=== PATIENT | female | born 1970 | race African-American/Black ===

== ENCOUNTER 2017-06-19 13:55 | Inpatient (IN) | payer OTHER ==
[2017-06-19 14:35] VITALS: BMI 27.4
--- NOTE | 2017-06-19 16:48 | HP ---
CIWA Score - CIWA Score Nausea/Vomitin Muscle Tremors: 3 Anxiety: 3 Agitation: 3 Paroxysmal Sweats: 1-Minimal Palms Moist Orientation: 0-Oriented Tacttile Disturbances: 2-Mild Itch/Numbness/Burn Auditory Disturbances: 2-Mild Harshness/Frighten Visual Disturbances: 2-Mild Sensitivity Headache: 2-Mild CIWA-Ar Total Score: 21 Admission ROS BHS - HPI Chief Complaint: i need help to stop drinking alcohol Allergies/Adverse Reactions: Allergies Allergy/AdvReac Type Severity Reaction Status Date / Time No Known Allergies Allergy Verified 06/19/17 16:31 History of Present Illness: this 46 years old female with alcohol and cocaine dependence,seekig help,detox, last treatment [facility] 04/03 depression weight loss nicotine dependence longest period of sobriety for 3 months - Ebola screening Have you traveled outside of the country in the last 21 days: No Have you had contact with anyone from an Ebola affected area: No Have you been sick,other than usual withdrawal symptoms: No Do you have a fever: No - Review of Systems Constitutional: Loss of Appetite, Malaise, Night Sweats, Changes in sleep, Weakness, Unintentional Wgt. Loss EENT: reports: Nose Congestion Respiratory: reports: No Symptoms reported Cardiac: reports: Palpitations GI: reports: Diarrhea, Nausea, Abdominal cramping : reports: No Symptoms Reported Musculoskeletal: reports: Back Pain, Muscle Pain Integumentary: reports: Dryness Neuro: reports: Headache, Tremors Endocrine: reports: No Symptoms Reported Hematology: reports: No Symptoms Reported Psychiatric: reports: No Sypmtoms Reported, Judgement Intact, Mood/Affect Appropiate, Orientated x3, Depressed Patient History - Patient Medical History Hx Anemia: No Hx Asthma: No Hx Chronic Obstructive Pulmonary Disease (COPD): No Hx Cancer: No Hx Cardiac Disorders: No Hx Hypertension: No Hx Hypercholesterolemia: No Hx Pacemaker: No HX Cerebrovascular Accident: No Hx Seizures: No Hx Diabetes: No Hx Gastrointestinal Disorders: No Hx Liver Disease: No Hx Genitourinary Disorders: No Hx Sexually Transmitted Disorders: No Hx Renal Disease (ESRD): No Hx Thyroid Disease: No Hx Human Immunodeficiency Virus (HIV): No (last 2014) Hx Hepatitis C: No Hx Depression: Yes Hx Suicide Attempt: No Hx Bipolar Disorder: No Hx Schizophrenia: No Other Medical History: no suicidal,no homicidal - Patient Surgical History Past Surgical History: No - PPD History Previous Implant?: Yes Documented Results: Negative w/o proof Implanted On Prior R Admission?: No PPD to be Administered?: Yes - Reproductive History Last Menstrual Period: 06/15/17 Patient : No - Smoking Cessation Smoking history: Current every day smoker Have you smoked in the past 12 months: Yes Aproximately how many cigarettes per day: 20 Hx Chewing Tobacco Use: No Initiated information on smoking cessation: Yes 'Breaking Loose' booklet given: 06/19/17 - Substance & Tx. History Hx Alcohol Use: Yes Hx Substance Use: Yes Substance Use Type: Alcohol, Cocaine Hx Substance Use Treatment: Yes (last [facility] 04/03) - Substances Abused Alcohol Route: Oral Frequency: Daily Amount used: 1 PINT VODKA Age of first use: 14 Date of Last Use: 06/18/17 Crack Route: Smoking Frequency: Daily Amount used: $200 Age of first use: 32 Date of Last Use: 06/18/17 Family Disease History - Family Disease History Family Disease History: CA: Mother (lung), Other: Sister (alcohol) Admission Physical Exam BHS - Vital Signs Vital Signs: Vital Signs - 24 hr 06/19/17 14:32 Temperature 97.1 F L Pulse Rate 95 H Respiratory 20 Rate Blood Pressure 120/62 - Physical General Appearance: Yes: Moderate Distress, Tremorous, Irritable, Sweating, Anxious HEENTM: Yes: Normal ENT Inspection, LANIE, Pharynx Normal Respiratory: Yes: Lungs Clear, Normal Breath Sounds, No Respiratory Distress Neck: Yes: Within Normal Limits, Supple, Trachea in good position Breast: Yes: Breast Exam Deferred Cardiology: Yes: Within Normal Limits, Regular Rhythm, Regular Rate, S1, S2 Abdominal: Yes: Normal Bowel Sounds, Non Tender, Flat, Soft Genitourinary: Yes: Within Normal Limits Back: Yes: Muscle Spasm Musculoskeletal: Yes: full range of Motion, Back pain, Muscle Pain Extremities: Yes: Normal Range of Motion, Tremors Neurological: Yes: pool player II-XII NML intact, Fully Oriented, Alert, Motor Strength 5/5 Integumentary: Yes: Dry Lymphatic: Yes: Within Normal Limits - Diagnostic (1) Alcohol dependence with uncomplicated withdrawal Current Visit: Yes Status: Acute (2) Cocaine dependence Current Visit: Yes Status: Acute (3) Depression Current Visit: Yes Status: Acute (4) Nicotine dependence Current Visit: Yes Status: Acute (5) Weight loss Current Visit: Yes Status: Acute Cleared for Admission S - Detox or Rehab [facility] Level of Care: Medically Managed Detox Regimen/Protocol: Librium [facility] Breath Alcohol Content Breath Alcohol Content: 0.072 Urine Pregancy Test - Result Urine Test Results: Negative- NO Line Present Urine Drug Screen - Results Drug Screen Negative: No Urine Drug Screen Results: ROBERT-Cocaine
[2017-06-19] MEDS ORDERED: hydrOXYzine PAMOATE 50 MG CAPSULE (FP) PO PRN (16:55)
[2017-06-19] MEDS ORDERED: chlordiazePOXIDE HCL 25 MG CAPSULE PO PRN (16:55)
[2017-06-19] MEDS ORDERED: MENTHOL/PHENOL 1 EACH UD MM PRN (16:55)
[2017-06-19] MEDS ORDERED: IBUPROFEN 400 MG TABLET (FP) PO PRN (16:55)
[2017-06-19] MEDS ORDERED: chlordiazePOXIDE HCL 25 MG CAPSULE PO ONE (16:55)
[2017-06-19] MEDS ORDERED: MAGNESIUM CITRATE 300 ML BOTTLE PO PRN (16:55)
[2017-06-19] MEDS ORDERED: guaiFENesin/D-METHORPHAN HB 10 ML UNIT-DOSE CUPS PO PRN (16:55)
[2017-06-19] MEDS ORDERED: P-EPHED 60MG/TRIPROLIDI 2.5MG TABLET PO PRN (16:55)
[2017-06-19] MEDS ORDERED: MAG HYDROX/AL HYDROX/SIMETH 30 ML UNIT-DOSE CUP PO PRN (16:55)
[2017-06-19] MEDS ORDERED: ACETAMINOPHEN 325 MG TABLET (FP) PO PRN (16:55)
[2017-06-19] MEDS ORDERED: MAGNESIUM HYDROX 2400MG/30ML ORAL SUSPENSION 30 ML CUP PO PRN (16:55)
[2017-06-19] MEDS: NICOTINE 21 MG/24 HOURS TOPICAL PATCH TD SCH (17:49)
[2017-06-19 22:07] LABS: URINE APPEARANCE CLOUDY; URINE BILIRUBIN NEGATIVE (NEGATIVE); URINE BLOOD 1+ (NEGATIVE); URINE COLOR YELLOW; URINE GLUCOSE (UA) NEGATIVE (NEGATIVE); URINE KETONE TRACE (NEGATIVE); URINE LEUK ESTERASE TRACE (NEGATIVE); URINE NITRITE NEGATIVE (NEGATIVE); URINE PROTEIN NEGATIVE (NEGATIVE); URINE UROBILINOGEN NEGATIVE mg/dL (0.2-1.0)
[2017-06-19] MEDS: diphenhydrAMINE HCL 50 MG CAPSULE PO PRN (22:13)
[2017-06-19] MEDS: chlordiazePOXIDE HCL 25 MG CAPSULE PO SCH (22:13)
[2017-06-19] MEDS: THIAMINE HCL 100 MG TABLET (FP) PO SCH (22:13)
[2017-06-19 22:35] LABS: URINE MUCUS RARE; URINE RBC 1 /hpf (0-3); URINE WBC 3 /hpf (3-5)
[2017-06-20] MEDS: chlordiazePOXIDE HCL 25 MG CAPSULE PO SCH ×4 (05:19→22:19)
[2017-06-20 10:03] LABS: MCH 30.1 pg (25.7-33.7); MCHC 33.4 g/dl (32.0-36.0); MEAN CELL VOLUME 90.2 fl (80-96); MEAN PLT VOLUME 9.4 fl (7.5-11.1); PLATELET COUNT 235 K/MM3 (134-434); RDW 13.3 % (11.6-15.6); WHITE BLOOD COUNT 7.6 K/mm3 (4.0-10.0)
[2017-06-20] MEDS: PRENATAL VITAMINS W/ FOLIC ACID TABLET (FP) PO SCH (10:20)
[2017-06-20] MEDS: NICOTINE 21 MG/24 HOURS TOPICAL PATCH TD SCH (10:21)
[2017-06-20] MEDS: SERTRALINE HCL 50 MG TABLET (FP) PO SCH (10:22)
[2017-06-20 10:24] LABS: ALBUMIN 3.4 g/dl (3.4-5.0); ALK PHOS 56 U/L (45-117); ANION GAP 6 (8-16); BILIRUBIN,TOTAL 0.3 mg/dL (0.2-1.0); CO2 28 mmol/L (21-32); CREATININE 0.8 mg/dL (0.55-1.02); GLUCOSE,RANDOM 78 mg/dL (74-106); SGOT/AST 19 U/L (15-37); SGPT/ALT 25 U/L (12-78); TOT PROT 6.1 g/dl (6.4-8.2)
--- NOTE | 2017-06-20 10:42 | CONSULT ---
[facility] Psychiatric Consult - Data Date of interview: 06/20/17 Admission source: [facility] Identifying data: This is 46 years old female with no psychiatric hospitalization history intoxicated with: Alcohol, Cocaine and Nicotine Substance Abuse History: - Smoking Cessation. Smoking history: Current every day smoker. Have you smoked in the past 12 months: Yes. Aproximately how many cigarettes per day: 20. Hx Chewing Tobacco Use: No. Initiated information on smoking cessation: Yes. 'Breaking Loose' booklet given: 06/19/17. - Substance & Tx. History. Hx Alcohol Use: Yes. Hx Substance Use: Yes. Substance Use Type : Alcohol, Cocaine. Hx Substance Use Treatment: Yes (last [facility] 04/03). - Substances Abused. Alcohol. Route: Oral. Frequency: Daily. Amount used: 1 PINT VODKA. Age of first use: 14. Date of Last Use: 06/18/17. Crack. Route: Smoking. Frequency: Daily. Amount used: $200. Age of first use : 32. Date of Last Use: 06/18/17 Medical History: Weight loss Psychiatric History: Patient reports history og depression and anxiety, reports taking prior to admission: Zoloft 50mg poqd Physical/Sexual Abuse/Trauma History: Denies Additional Comment: Zoloft 50mg poqd Mental Status Exam - Mental Status Exam Alert and Oriented to: Person Cognitive Function: Fair Patient Appearance: Unkempt Mood: Sad Affect: Flat Patient Behavior: Sedated Speech Pattern: Delayed Voice Loudness: Mildly Soft/Quiet Thought Process: Circumstantial Thought Disorder: Being Controlled Hallucinations: Denies Suicidal Ideation: Denies Homicidal Ideation: Denies Insight/Judgement: Fair Sleep: Difficulty falling asleep Appetite: Weight gain Muscle strength/Tone: Mild Hypotonicity Gait/Station: Shuffling Additional Comments: Zoloft 50mg poqd Psychiatric Findings - Problem List ([place] 1, 2,3) (1) Alcohol dependence with uncomplicated withdrawal Current Visit: Yes Status: Acute (2) Cocaine dependence Current Visit: Yes Status: Acute (3) Nicotine dependence Current Visit: Yes Status: Acute (4) Drug-induced mood disorder Current Visit: Yes Status: Acute - Initial Treatment Plan Initial Treatment Plan: Zoloft 50mg poqd
[2017-06-20 11:28] LABS: HIV 1 & 2 AB NEGATIVE; HIV 1 AGp24 NEGATIVE
--- NOTE | 2017-06-20 11:29 | EKG ---
Test Reason : Blood Pressure : / mmHG Vent. Rate : 084 BPM Atrial Rate : 084 BPM P-R Int : 164 ms QRS Dur : 088 ms QT Int : 408 ms P-R-T Axes : 053 040 055 degrees QTc Int : 482 ms NORMAL SINUS RHYTHM PROLONGED QT ABNORMAL ECG NO PREVIOUS ECGS AVAILABLE Confirmed by ANDREINA JACKSON, ARON ([id number]) on 06/20/2017 11:28:21 AM Referred By: Bran Tanner Confirmed By:ARON HDZ MD
--- NOTE | 2017-06-20 11:42 | PN ---
S CIWA - CIWA Score Nausea/Vomitin-No Nausea/No Vomiting Muscle Tremors: 4-Moderate,w/Arms Extend Anxiety: 3 Agitation: 4-Moderately Restless Paroxysmal Sweats: 3 Orientation: 0-Oriented Tacttile Disturbances: 0-None Auditory Disturbances: 0-None Visual Disturbances: 0-None Headache: 0-None Present CIWA-Ar Total Score: 14 BHS Progress Note (SOAP) Subjective: sweats shakes interrupted sleep agitation Objective: 06/20/17 11:41 Vital Signs Temperature 98.1 F 06/20/17 09:35 Pulse Rate 75 06/20/17 09:35 Respiratory Rate 18 06/20/17 09:35 Blood Pressure 111/81 06/20/17 09:35 O2 Sat by Pulse Oximetry (%) Laboratory Tests 06/19/17 06/20/17 06/20/17 21:30 07:30 07:30 WBC 7.6 RBC 4.27 Hgb 12.9 Hct 38.5 MCV 90.2 MCH 30.1 MCHC 33.4 RDW 13.3 Plt Count 235 MPV 9.4 Sodium Potassium Chloride Carbon Dioxide Anion Gap BUN Creatinine Creat Clearance w eGFR Random Glucose Calcium Total Bilirubin AST ALT Alkaline Phosphatase Total Protein Albumin Urine Color Yellow Urine Appearance Cloudy Urine pH 5.0 Urine Protein Negative Urine Glucose (UA) Negative Urine Ketones Trace H Urine Blood 1+ H Urine Nitrite Negative Urine Bilirubin Negative Urine Urobilinogen Negative Ur Leukocyte Esterase Trace Urine RBC 1 Urine WBC 3 Ur Epithelial Cells Many Urine Mucus Rare HIV 1&2 Antibody Screen Negative HIV P24 Antigen Negative 06/20/17 07:30 WBC RBC Hgb Hct MCV MCH MCHC RDW Plt Count MPV Sodium 141 Potassium 4.1 Chloride 107 Carbon Dioxide 28 Anion Gap 6 L BUN 11 Creatinine 0.8 Creat Clearance w eGFR > 60 Random Glucose 78 Calcium 9.0 Total Bilirubin 0.3 AST 19 ALT 25 Alkaline Phosphatase 56 Total Protein 6.1 L Albumin 3.4 Urine Color Urine Appearance Urine pH Urine Protein Urine Glucose (UA) Urine Ketones Urine Blood Urine Nitrite Urine Bilirubin Urine Urobilinogen Ur Leukocyte Esterase Urine RBC Urine WBC Ur Epithelial Cells Urine Mucus HIV 1&2 Antibody Screen HIV P24 Antigen awake/alert ambulating no acute distress Assessment: 06/20/17 11:41 withdrawal sx Plan: continue detox increase fluids
[2017-06-20] MEDS: LOPERAMIDE HCL 2 MG CAPSULE PO PRN ×2 (13:09→20:51)
[2017-06-20] MEDS: THIAMINE HCL 100 MG TABLET (FP) PO SCH (22:19)
[2017-06-20] MEDS: diphenhydrAMINE HCL 50 MG CAPSULE PO PRN (22:19)
[2017-06-21] MEDS: chlordiazePOXIDE HCL 25 MG CAPSULE PO SCH ×3 (05:49→17:37)
[2017-06-21] MEDS: NICOTINE 21 MG/24 HOURS TOPICAL PATCH TD SCH (10:41)
[2017-06-21] MEDS: SERTRALINE HCL 50 MG TABLET (FP) PO SCH (10:42)
[2017-06-21] MEDS: PRENATAL VITAMINS W/ FOLIC ACID TABLET (FP) PO SCH (10:42)
--- NOTE | 2017-06-21 12:17 | PN ---
[facility] CIWA - CIWA Score Nausea/Vomitin-No Nausea/No Vomiting Muscle Tremors: 4-Moderate,w/Arms Extend Anxiety: 3 Agitation: 3 Paroxysmal Sweats: 3 Orientation: 0-Oriented Tacttile Disturbances: 0-None Auditory Disturbances: 0-None Visual Disturbances: 0-None Headache: 0-None Present CIWA-Ar Total Score: 13 S Progress Note (SOAP) Subjective: sleepy sweats interrupted sleep tired Objective: 06/21/17 12:16 Vital Signs Temperature 97.5 F L 06/21/17 10:00 Pulse Rate 76 06/21/17 10:00 Respiratory Rate 18 06/21/17 10:00 Blood Pressure 108/66 06/21/17 10:00 O2 Sat by Pulse Oximetry (%) Laboratory Tests 06/19/17 06/20/17 06/20/17 21:30 07:30 07:30 WBC 7.6 RBC 4.27 Hgb 12.9 Hct 38.5 MCV 90.2 MCH 30.1 MCHC 33.4 RDW 13.3 Plt Count 235 MPV 9.4 Sodium Potassium Chloride Carbon Dioxide Anion Gap BUN Creatinine Creat Clearance w eGFR Random Glucose Calcium Total Bilirubin AST ALT Alkaline Phosphatase Total Protein Albumin Urine Color Yellow Urine Appearance Cloudy Urine pH 5.0 Ur Specific [place] 1.025 Urine Protein Negative Urine Glucose (UA) Negative Urine Ketones Trace H Urine Blood 1+ H Urine Nitrite Negative Urine Bilirubin Negative Urine Urobilinogen Negative Ur Leukocyte Esterase Trace Urine RBC 1 Urine WBC 3 Ur Epithelial Cells Many Urine Mucus Rare RPR Titer HIV 1&2 Antibody Screen Negative HIV P24 Antigen Negative 06/20/17 06/20/17 07:30 07:30 WBC RBC Hgb Hct MCV MCH MCHC RDW Plt Count MPV Sodium 141 Potassium 4.1 Chloride 107 Carbon Dioxide 28 Anion Gap 6 L BUN 11 Creatinine 0.8 Creat Clearance w eGFR > 60 Random Glucose 78 Calcium 9.0 Total Bilirubin 0.3 AST 19 ALT 25 Alkaline Phosphatase 56 Total Protein 6.1 L Albumin 3.4 Urine Color Urine Appearance Urine pH Ur Specific [place] Urine Protein Urine Glucose (UA) Urine Ketones Urine Blood Urine Nitrite Urine Bilirubin Urine Urobilinogen Ur Leukocyte Esterase Urine RBC Urine WBC Ur Epithelial Cells Urine Mucus RPR Titer Nonreactive HIV 1&2 Antibody Screen HIV P24 Antigen awake/alert ambulating no acute distress Assessment: 06/21/17 12:16 withdrawal sx Plan: continue detox increase fluids
[2017-06-21] MEDS: chlordiazePOXIDE 5 MG CAPSULE PO SCH (22:28)
[2017-06-21] MEDS: THIAMINE HCL 100 MG TABLET (FP) PO SCH (22:28)
[2017-06-21] MEDS: diphenhydrAMINE HCL 50 MG CAPSULE PO PRN (22:29)
[2017-06-22] MEDS: chlordiazePOXIDE 5 MG CAPSULE PO SCH ×3 (06:18→17:03)
[2017-06-22] MEDS: SERTRALINE HCL 50 MG TABLET (FP) PO SCH (10:52)
[2017-06-22] MEDS: NICOTINE 21 MG/24 HOURS TOPICAL PATCH TD SCH (10:52)
[2017-06-22] MEDS: PRENATAL VITAMINS W/ FOLIC ACID TABLET (FP) PO SCH (10:52)
--- NOTE | 2017-06-22 14:07 | PN ---
BHS Progress Note (SOAP) Subjective: ALERT,IRRITABLE,ANXIOUS,INTERRUPTED SLEEP Objective: 06/22/17 14:06 Vital Signs Temperature 98.1 F 06/22/17 10:09 Pulse Rate 73 06/22/17 10:09 Respiratory Rate 18 06/22/17 10:09 Blood Pressure 115/88 06/22/17 10:09 O2 Sat by Pulse Oximetry (%) Assessment: 06/22/17 14:06 WITHDRAWAL SYMPTOM Plan: CONTINUE DETOX
[2017-06-22] MEDS: diphenhydrAMINE HCL 50 MG CAPSULE PO PRN (22:25)
[2017-06-22] MEDS: chlordiazePOXIDE HCL 10 MG CAPSULE PO SCH (22:25)
[2017-06-22] MEDS: THIAMINE HCL 100 MG TABLET (FP) PO SCH (22:25)
[2017-06-23] MEDS: chlordiazePOXIDE HCL 10 MG CAPSULE PO SCH ×2 (06:28→10:21)
--- NOTE | 2017-06-23 09:37 | DS ---
[facility] Detox Discharge Summary Admission Date: 06/19/17 Discharge Date: 06/23/17 - History Present History: Alcohol Dependence, Cocaine Dependence Additional Comments: FOLLOW UP WITH [facility] Pertinent Past History: NICOTINE DEPENDENCE DEPRESSION - Physical Exam Results Vital Signs: Vital Signs Temperature 96.1 F L 06/23/17 06:38 Pulse Rate 72 06/23/17 06:38 Respiratory Rate 18 06/23/17 06:38 Blood Pressure 101/60 06/23/17 06:38 O2 Sat by Pulse Oximetry (%) Pertinent Admission Physical Exam Findings: WITHDRAWAL SYMPTOM - Treatment Hospital Course: Detox Protocol Followed, Detoxed Safely, Responded well, Discharged Condition Good, Rehab Referral Accepted Patient has Accepted a Rehab Referral to: [facility] - Medication Discharge Medications: Ambulatory Orders Sertraline HCl [Zoloft -] 50 mg PO DAILY 06/19/17 Sertraline HCl [Zoloft -] 50 mg PO DAILY #30 tablet 06/20/17 - Diagnosis (1) Alcohol dependence with uncomplicated withdrawal Current Visit: Yes Status: Acute (2) Cocaine dependence Current Visit: Yes Status: Acute (3) Depression Current Visit: Yes Status: Acute (4) Nicotine dependence Current Visit: Yes Status: Acute (5) Weight loss Current Visit: Yes Status: Acute - AMA Did Patient Leave Against Medical Advice: No
[2017-06-23] MEDS: SERTRALINE HCL 50 MG TABLET (FP) PO SCH (10:21)
[2017-06-23] MEDS: NICOTINE 21 MG/24 HOURS TOPICAL PATCH TD SCH (10:21)
[2017-06-23] MEDS: PRENATAL VITAMINS W/ FOLIC ACID TABLET (FP) PO SCH (10:21)
[2017-06-23 10:38] VITALS: BP 125/90; PULSE 67; TEMP 97.9
== END 2017-06-23 11:38 | disposition other institution (70) | DRG 774 ==
LOC: YASAS 13:55 → Y6N 17:13
PROVIDERS: ADMIT Internal Medicine Addiction Medicine; ATTEND Internal Medicine Addiction Medicine
PROC: HZ2ZZZZ Detoxification Services for Substance Abuse Treatment (ICD-10-PCS; principal; 2017-06-19)
DX: F10.230 Alcohol dependence with withdrawal, uncomplicated (principal); F14.20 Cocaine dependence, uncomplicated; F17.210 Nicotine dependence, cigarettes, uncomplicated; F32.9 Major depressive disorder, single episode, unspecified; F19.24 Other psychoactive substance dependence with psychoactive substance-induced mood disorder; Z87.898 Personal history of other specified conditions; Z59.0 Homelessness
CPT/HCPCS: 36415; 80053; 81003; 81015; 85027; 86593; 87389; 93005; 93010

== ENCOUNTER 2017-06-23 11:28 | Inpatient (IN) | payer OTHER ==
[2017-06-23] MEDS ORDERED: MAGNESIUM HYDROX 2400MG/30ML ORAL SUSPENSION 30 ML CUP PO PRN (13:15)
[2017-06-23] MEDS ORDERED: guaiFENesin/D-METHORPHAN HB 10 ML UNIT-DOSE CUPS PO PRN (13:15)
[2017-06-23] MEDS ORDERED: MAGNESIUM CITRATE 300 ML BOTTLE PO PRN (13:15)
[2017-06-23] MEDS ORDERED: P-EPHED 60MG/TRIPROLIDI 2.5MG TABLET PO PRN (13:15)
[2017-06-23] MEDS ORDERED: MENTHOL/PHENOL 1 EACH UD MM PRN (13:15)
[2017-06-23] MEDS ORDERED: ACETAMINOPHEN 325 MG TABLET (FP) PO PRN (13:15)
[2017-06-23] MEDS ORDERED: LOPERAMIDE HCL 2 MG CAPSULE PO PRN (13:15)
[2017-06-23] MEDS ORDERED: IBUPROFEN 400 MG TABLET (FP) PO PRN (13:15)
[2017-06-23] MEDS ORDERED: MAG HYDROX/AL HYDROX/SIMETH 30 ML UNIT-DOSE CUP PO PRN (13:15)
[2017-06-23] MEDS ORDERED: hydrOXYzine PAMOATE 50 MG CAPSULE (FP) PO PRN (13:15)
--- NOTE | 2017-06-23 13:15 | HP ---
[facility] Rehab Assess/Revision - Admission History Admitted to Rehab from: [facility] [place] Date of Admission to Rehab: 06/23/17 - Findings Detox History & Physical reviewed: Yes Concur with findings: Yes Comments/Additional Findings: FOR REHAB PROTOCOL
[2017-06-23] MEDS: THIAMINE HCL 100 MG TABLET (FP) PO SCH (21:43)
[2017-06-23] MEDS: diphenhydrAMINE HCL 50 MG CAPSULE PO PRN (21:43)
[2017-06-24] MEDS: NICOTINE 21 MG/24 HOURS TOPICAL PATCH TD SCH (09:38)
[2017-06-24] MEDS: PRENATAL VITAMINS W/ FOLIC ACID TABLET (FP) PO SCH (09:38)
[2017-06-24] MEDS: SERTRALINE HCL 50 MG TABLET (FP) PO SCH (10:07)
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
[2017-06-24] MEDS ORDERED: IBUPROFEN 600 MG TABLET (FP) PO PRN (15:10)
[2017-06-24] MEDS ORDERED: LIDOCAINE VISCOUS 2% ORAL/TOP 20 ML UNIT-DOSE CUP MM PRN (15:10)
[2017-06-24] MEDS: diphenhydrAMINE HCL 50 MG CAPSULE PO PRN (21:11)
[2017-06-24] MEDS: THIAMINE HCL 100 MG TABLET (FP) PO SCH (21:11)
[2017-06-25] MEDS: PRENATAL VITAMINS W/ FOLIC ACID TABLET (FP) PO SCH (09:39)
[2017-06-25] MEDS: NICOTINE 21 MG/24 HOURS TOPICAL PATCH TD SCH (09:39)
[2017-06-25] MEDS: SERTRALINE HCL 50 MG TABLET (FP) PO SCH (09:51)
[2017-06-25] MEDS: COLLOIDAL OATMEAL 1 BAR EACH TP PRN (15:17)
[2017-06-25] MEDS: THIAMINE HCL 100 MG TABLET (FP) PO SCH (21:23)
[2017-06-25] MEDS: diphenhydrAMINE HCL 50 MG CAPSULE PO PRN (21:23)
[2017-06-26] MEDS: PRENATAL VITAMINS W/ FOLIC ACID TABLET (FP) PO SCH (09:53)
[2017-06-26] MEDS: NICOTINE 21 MG/24 HOURS TOPICAL PATCH TD SCH (09:53)
[2017-06-26] MEDS: SERTRALINE HCL 50 MG TABLET (FP) PO SCH (09:54)
--- NOTE | 2017-06-26 14:57 | PN ---
BHS Progress Note Note: C/O vaginal d/c with fishy odor Dx. : Bacterial vaginosis P : metronidazole & metrogel
[2017-06-26] MEDS: diphenhydrAMINE HCL 50 MG CAPSULE PO PRN (21:07)
[2017-06-26] MEDS: metroNIDAZOLE 0.75% VAGINAL GEL 70 GM TUBE VG SCH (21:07)
[2017-06-26] MEDS: THIAMINE HCL 100 MG TABLET (FP) PO SCH (21:07)
[2017-06-26] MEDS: metroNIDAZOLE 250 MG TABLET PO SCH (21:08)
[2017-06-26] MEDS ORDERED: PT OWN MED DRAWER 7, Y5N ONE (23:31)
[2017-06-27] MEDS: metroNIDAZOLE 250 MG TABLET PO SCH ×2 (09:46→21:08)
[2017-06-27] MEDS: PRENATAL VITAMINS W/ FOLIC ACID TABLET (FP) PO SCH (09:46)
[2017-06-27] MEDS: SERTRALINE HCL 50 MG TABLET (FP) PO SCH (09:47)
[2017-06-27] MEDS: NICOTINE 21 MG/24 HOURS TOPICAL PATCH TD SCH (09:47)
[2017-06-27] MEDS ORDERED: PT OWN MED DRAWER 7, Y5N ONE (21:05)
[2017-06-27] MEDS: THIAMINE HCL 100 MG TABLET (FP) PO SCH (21:07)
[2017-06-27] MEDS: metroNIDAZOLE 0.75% VAGINAL GEL 70 GM TUBE VG SCH (21:08)
[2017-06-27] MEDS: diphenhydrAMINE HCL 50 MG CAPSULE PO PRN (21:09)
[2017-06-28] MEDS: metroNIDAZOLE 250 MG TABLET PO SCH ×2 (10:04→21:14)
[2017-06-28] MEDS: NICOTINE 21 MG/24 HOURS TOPICAL PATCH TD SCH (10:04)
[2017-06-28] MEDS: PRENATAL VITAMINS W/ FOLIC ACID TABLET (FP) PO SCH (10:04)
[2017-06-28] MEDS: SERTRALINE HCL 50 MG TABLET (FP) PO SCH (10:04)
[2017-06-28] MEDS: THIAMINE HCL 100 MG TABLET (FP) PO SCH (21:14)
[2017-06-28] MEDS: metroNIDAZOLE 0.75% VAGINAL GEL 70 GM TUBE VG SCH (21:15)
[2017-06-28] MEDS: diphenhydrAMINE HCL 50 MG CAPSULE PO PRN (21:15)
[2017-06-28] MEDS ORDERED: PT OWN MED DRAWER 7, Y5N ONE (22:40)
[2017-06-29] MEDS: NICOTINE 21 MG/24 HOURS TOPICAL PATCH TD SCH (09:50)
[2017-06-29] MEDS: PRENATAL VITAMINS W/ FOLIC ACID TABLET (FP) PO SCH (09:50)
[2017-06-29] MEDS: metroNIDAZOLE 250 MG TABLET PO SCH ×2 (09:50→21:03)
[2017-06-29] MEDS: SERTRALINE HCL 50 MG TABLET (FP) PO SCH (09:51)
[2017-06-29] MEDS ORDERED: PT OWN MED DRAWER 7, Y5N ONE (19:48)
[2017-06-29] MEDS: diphenhydrAMINE HCL 50 MG CAPSULE PO PRN (21:03)
[2017-06-29] MEDS: THIAMINE HCL 100 MG TABLET (FP) PO SCH (21:03)
[2017-06-29] MEDS: metroNIDAZOLE 0.75% VAGINAL GEL 70 GM TUBE VG SCH (21:03)
[2017-06-30] MEDS: NICOTINE 21 MG/24 HOURS TOPICAL PATCH TD SCH (09:30)
[2017-06-30] MEDS: metroNIDAZOLE 250 MG TABLET PO SCH ×2 (09:30→21:00)
[2017-06-30] MEDS: SERTRALINE HCL 50 MG TABLET (FP) PO SCH (09:31)
[2017-06-30] MEDS: PRENATAL VITAMINS W/ FOLIC ACID TABLET (FP) PO SCH (09:31)
[2017-06-30] MEDS ORDERED: PT OWN MED DRAWER 7, Y5N ONE (19:16)
[2017-06-30] MEDS: THIAMINE HCL 100 MG TABLET (FP) PO SCH (21:01)
[2017-06-30] MEDS: diphenhydrAMINE HCL 50 MG CAPSULE PO PRN (21:02)
[2017-06-30] MEDS: metroNIDAZOLE 0.75% VAGINAL GEL 70 GM TUBE VG SCH (21:03)
[2017-07-01] MEDS: metroNIDAZOLE 250 MG TABLET PO SCH ×2 (09:57→21:08)
[2017-07-01] MEDS: SERTRALINE HCL 50 MG TABLET (FP) PO SCH (09:57)
[2017-07-01] MEDS: PRENATAL VITAMINS W/ FOLIC ACID TABLET (FP) PO SCH (09:57)
[2017-07-01] MEDS: NICOTINE 21 MG/24 HOURS TOPICAL PATCH TD SCH (09:58)
--- NOTE | 2017-07-01 13:22 | PN ---
Psychiatric Progress Note Vital Signs: Vital Signs Period Temp Pulse Resp BP Sys/[place] Pulse Ox Last 24 Hr 98.2 F 76 16-18 113/68 Date of Session: 07/01/17 Chief Complaint:: My sleep is still big problem,interrupted sleep pattern." HPI: patient addressed alcohol and Cocaine dependence comorbid with Substance induced mood disorder. ROS: Significant weight loss. Current Medications: Active Medications Generic Name Dose Route Start Last Admin Trade Name Freq PRN Reason Stop Dose Admin Acetaminophen 650 mg 06/23/17 13:15 Tylenol - PO Q4H PRN FEVER OR PAIN Al Hydroxide/Mg Hydroxide 30 ml 06/23/17 13:15 Mylanta Oral Suspension - PO Q6H PRN DYSPEPSIA Colloidal Oatmeal 1 applic 06/23/17 13:17 06/25/17 15:17 Aveeno Soap - TP 1 bar DAILY PRN Administration HYGEINE Diphenhydramine HCl 100 mg 07/01/17 22:00 Benadryl - PO HS LINNETTE Eucalyptus/Menthol/Phenol/Sorbitol 1 each 06/23/17 13:15 Cepastat Lozenge - MM Q4H PRN SORE THROAT Guaifenesin 10 ml 06/23/17 13:15 Robitussin Dm - PO Q6H PRN COUGH Hydroxyzine Pamoate 50 mg 06/23/17 13:15 Vistaril - PO Q4H PRN AGITATION Ibuprofen 600 mg 06/24/17 15:10 Motrin - PO Q6H PRN PAIN Lidocaine HCl 20 ml 06/24/17 15:10 Xylocaine 2% Viscous Oral - MM Q4HPO PRN ORAL PAIN/MOUTH SORES Loperamide HCl 4 mg 06/23/17 13:15 Imodium - PO Q6H PRN DIARRHEA Magnesium Hydroxide 30 ml 06/23/17 13:15 Milk Of Magnesia - PO DAILY PRN CONSTIPATION Metronidazole 500 mg 06/26/17 22:00 07/01/17 09:57 Flagyl - PO 500 mg BID LINNETTE Administration Metronidazole 1 applic 06/26/17 22:00 06/30/17 21:03 Metrogel 0.75% Vaginal Gel - VG 07/02/17 22:01 1 applic HS LINNETTE Administration Nicotine 21 mg 06/24/17 10:00 07/01/17 09:58 Nicoderm Patch - TD 21 mg DAILY LINNETTE Administration Multivit/Folic Acid/Iron 1 tab 06/24/17 10:00 07/01/17 09:57 Vitamins (Sjr) - PO 1 tab DAILY LINNETTE Administration Pseudoephedrine/Triprolidine 1 combo 06/23/17 13:15 Actifed - PO TID PRN NASAL CONGESTION Sertraline HCl 50 mg 06/24/17 10:00 07/01/17 09:57 Zoloft - PO 50 mg DAILY LINNETTE Administration Thiamine HCl 100 mg 06/23/17 22:00 06/30/17 21:01 Vitamin B1 - PO 100 mg HS LINNETTE Administration Current Side Effect: No Lab tests ordered: No Lab tests reviewed: Yes Provider note:: Chart was revuewed,patient was evaluated ,treatment plan including medication management has been discussed with the patient .Properies of Benadryl has been discussed including side effects,benefits and dose adjustment.Benadryl 50 mg po prn will be adjusted to 100 mg po hs.Consider Trazodone if needed.Continue Zoloft 50 mg po daily. Supportive therapy provided. Total face to face time:: 30 Mental Status Exam - Mental Status Exam Alert and Oriented to: Time, Place, Person Cognitive Function: Grossly Intact Patient Appearance: Unkempt Mood: Anxious Affect: Mood Congruent, Labile Patient Behavior: Cooperative Speech Pattern: Clear Voice Loudness: Normal Thought Process: Goal Oriented Thought Disorder: Not Present Hallucinations: Denies Suicidal Ideation: Denies Homicidal Ideation: Denies Insight/Judgement: Fair Sleep: Difficulty falling asleep Appetite: Good Muscle strength/Tone: Normal Gait/Station: Normal Psychiatric Treatment Plan - Problem List (1) Alcohol dependence with uncomplicated withdrawal Current Visit: Yes (2) Cocaine dependence Current Visit: Yes (3) Drug-induced mood disorder Current Visit: Yes (4) Nicotine dependence Current Visit: Yes
[2017-07-01] MEDS: THIAMINE HCL 100 MG TABLET (FP) PO SCH (21:08)
[2017-07-01] MEDS: diphenhydrAMINE HCL 50 MG CAPSULE PO SCH (21:08)
[2017-07-01] MEDS: metroNIDAZOLE 0.75% VAGINAL GEL 70 GM TUBE VG SCH (21:08)
[2017-07-01] MEDS ORDERED: PT OWN MED DRAWER 7, Y5N ONE (22:42)
[2017-07-02] MEDS: NICOTINE 21 MG/24 HOURS TOPICAL PATCH TD SCH (09:48)
[2017-07-02] MEDS: PRENATAL VITAMINS W/ FOLIC ACID TABLET (FP) PO SCH (09:49)
[2017-07-02] MEDS: SERTRALINE HCL 50 MG TABLET (FP) PO SCH (09:49)
[2017-07-02] MEDS: metroNIDAZOLE 250 MG TABLET PO SCH ×2 (09:49→21:16)
[2017-07-02] MEDS: THIAMINE HCL 100 MG TABLET (FP) PO SCH (21:15)
[2017-07-02] MEDS: diphenhydrAMINE HCL 50 MG CAPSULE PO SCH (21:15)
[2017-07-03] MEDS: metroNIDAZOLE 250 MG TABLET PO SCH ×2 (09:40→21:13)
[2017-07-03] MEDS: NICOTINE 21 MG/24 HOURS TOPICAL PATCH TD SCH (09:40)
[2017-07-03] MEDS: PRENATAL VITAMINS W/ FOLIC ACID TABLET (FP) PO SCH (09:40)
[2017-07-03] MEDS: SERTRALINE HCL 50 MG TABLET (FP) PO SCH (09:41)
[2017-07-03] MEDS: THIAMINE HCL 100 MG TABLET (FP) PO SCH (21:13)
[2017-07-03] MEDS: diphenhydrAMINE HCL 50 MG CAPSULE PO SCH (21:13)
[2017-07-03] MEDS ORDERED: PT OWN MED DRAWER 7, Y5N ONE (23:38)
[2017-07-04] MEDS: NICOTINE 21 MG/24 HOURS TOPICAL PATCH TD SCH (09:31)
[2017-07-04] MEDS: PRENATAL VITAMINS W/ FOLIC ACID TABLET (FP) PO SCH (09:31)
[2017-07-04] MEDS: SERTRALINE HCL 50 MG TABLET (FP) PO SCH (09:32)
[2017-07-04] MEDS: COLLOIDAL OATMEAL 1 BAR EACH TP PRN (10:08)
[2017-07-04] MEDS: THIAMINE HCL 100 MG TABLET (FP) PO SCH (21:12)
[2017-07-04] MEDS: diphenhydrAMINE HCL 50 MG CAPSULE PO SCH (21:13)
[2017-07-05] MEDS: NICOTINE 21 MG/24 HOURS TOPICAL PATCH TD SCH (09:50)
[2017-07-05] MEDS: PRENATAL VITAMINS W/ FOLIC ACID TABLET (FP) PO SCH (09:50)
[2017-07-05] MEDS: SERTRALINE HCL 50 MG TABLET (FP) PO SCH (09:51)
[2017-07-05] MEDS: diphenhydrAMINE HCL 50 MG CAPSULE PO SCH (21:22)
[2017-07-05] MEDS: THIAMINE HCL 100 MG TABLET (FP) PO SCH (21:22)
[2017-07-06] MEDS: PRENATAL VITAMINS W/ FOLIC ACID TABLET (FP) PO SCH (09:33)
[2017-07-06] MEDS: SERTRALINE HCL 50 MG TABLET (FP) PO SCH (09:33)
[2017-07-06] MEDS: NICOTINE 21 MG/24 HOURS TOPICAL PATCH TD SCH (09:34)
[2017-07-06] MEDS: THIAMINE HCL 100 MG TABLET (FP) PO SCH (21:15)
[2017-07-06] MEDS: diphenhydrAMINE HCL 50 MG CAPSULE PO SCH (21:15)
[2017-07-06] MEDS ORDERED: PT OWN MED DRAWER 7, Y5N ONE (22:26)
[2017-07-07] MEDS: SERTRALINE HCL 50 MG TABLET (FP) PO SCH (09:35)
[2017-07-07] MEDS: NICOTINE 21 MG/24 HOURS TOPICAL PATCH TD SCH (09:35)
[2017-07-07] MEDS: PRENATAL VITAMINS W/ FOLIC ACID TABLET (FP) PO SCH (09:35)
[2017-07-07] MEDS: THIAMINE HCL 100 MG TABLET (FP) PO SCH (21:35)
[2017-07-07] MEDS: diphenhydrAMINE HCL 50 MG CAPSULE PO SCH (21:35)
[2017-07-08] MEDS: SERTRALINE HCL 50 MG TABLET (FP) PO SCH (09:52)
[2017-07-08] MEDS: PRENATAL VITAMINS W/ FOLIC ACID TABLET (FP) PO SCH (09:52)
[2017-07-08] MEDS: NICOTINE 21 MG/24 HOURS TOPICAL PATCH TD SCH (09:52)
[2017-07-08] MEDS: THIAMINE HCL 100 MG TABLET (FP) PO SCH (21:10)
[2017-07-08] MEDS: diphenhydrAMINE HCL 50 MG CAPSULE PO SCH (21:11)
[2017-07-08] MEDS ORDERED: PT OWN MED DRAWER 7, Y5N ONE (23:32)
[2017-07-09] MEDS: SERTRALINE HCL 50 MG TABLET (FP) PO SCH (09:48)
[2017-07-09] MEDS: NICOTINE 21 MG/24 HOURS TOPICAL PATCH TD SCH (09:48)
[2017-07-09] MEDS: PRENATAL VITAMINS W/ FOLIC ACID TABLET (FP) PO SCH (09:48)
[2017-07-09] MEDS: THIAMINE HCL 100 MG TABLET (FP) PO SCH (21:04)
[2017-07-09] MEDS: diphenhydrAMINE HCL 50 MG CAPSULE PO SCH (21:05)
[2017-07-10] MEDS: SERTRALINE HCL 50 MG TABLET (FP) PO SCH (09:40)
[2017-07-10] MEDS: PRENATAL VITAMINS W/ FOLIC ACID TABLET (FP) PO SCH (09:40)
[2017-07-10] MEDS: NICOTINE 21 MG/24 HOURS TOPICAL PATCH TD SCH (09:40)
[2017-07-10] MEDS: THIAMINE HCL 100 MG TABLET (FP) PO SCH (21:09)
[2017-07-10] MEDS: diphenhydrAMINE HCL 50 MG CAPSULE PO SCH (21:09)
[2017-07-11] MEDS: NICOTINE 21 MG/24 HOURS TOPICAL PATCH TD SCH (09:48)
[2017-07-11] MEDS: PRENATAL VITAMINS W/ FOLIC ACID TABLET (FP) PO SCH (09:48)
[2017-07-11] MEDS: SERTRALINE HCL 50 MG TABLET (FP) PO SCH (09:49)
[2017-07-11] MEDS: THIAMINE HCL 100 MG TABLET (FP) PO SCH (21:09)
[2017-07-11] MEDS: diphenhydrAMINE HCL 50 MG CAPSULE PO SCH (21:09)
[2017-07-12] MEDS: PRENATAL VITAMINS W/ FOLIC ACID TABLET (FP) PO SCH (09:54)
[2017-07-12] MEDS: SERTRALINE HCL 50 MG TABLET (FP) PO SCH (09:54)
[2017-07-12] MEDS: NICOTINE 21 MG/24 HOURS TOPICAL PATCH TD SCH (09:55)
[2017-07-12] MEDS: diphenhydrAMINE HCL 50 MG CAPSULE PO SCH (21:14)
[2017-07-12] MEDS: THIAMINE HCL 100 MG TABLET (FP) PO SCH (21:14)
[2017-07-13] MEDS: NICOTINE 21 MG/24 HOURS TOPICAL PATCH TD SCH (09:32)
[2017-07-13] MEDS: SERTRALINE HCL 50 MG TABLET (FP) PO SCH (09:33)
[2017-07-13] MEDS: PRENATAL VITAMINS W/ FOLIC ACID TABLET (FP) PO SCH (09:33)
[2017-07-13] MEDS ORDERED: PT OWN MED DRAWER 7, Y5N ONE (13:57)
[2017-07-13] MEDS: COLLOIDAL OATMEAL 1 BAR EACH TP PRN (13:59)
[2017-07-13] MEDS: THIAMINE HCL 100 MG TABLET (FP) PO SCH (21:11)
[2017-07-13] MEDS: diphenhydrAMINE HCL 50 MG CAPSULE PO SCH (21:11)
[2017-07-14] MEDS: SERTRALINE HCL 50 MG TABLET (FP) PO SCH (09:09)
[2017-07-14] MEDS: PRENATAL VITAMINS W/ FOLIC ACID TABLET (FP) PO SCH (09:09)
[2017-07-14] MEDS: NICOTINE 21 MG/24 HOURS TOPICAL PATCH TD SCH (09:09)
[2017-07-14] MEDS: diphenhydrAMINE HCL 50 MG CAPSULE PO SCH (21:05)
[2017-07-14] MEDS: THIAMINE HCL 100 MG TABLET (FP) PO SCH (21:05)
[2017-07-15 06:45] VITALS: BP 110/77; PULSE 67; TEMP 97.9
--- NOTE | 2017-07-15 08:26 | PN ---
Psychiatric Progress Note Vital Signs: Vital Signs Period Temp Pulse Resp BP Sys/[place] Pulse Ox Last 24 Hr 97.9 F 67 16-18 110/77 Date of Session: 07/15/17 Chief Complaint:: Dischrge visit HPI: Patient successfully completed rehabilitation program, dischrged home on: Zoloft 50mg poqd. Benadryl 100mg po qhs Current Medications: Active Medications Generic Name Dose Route Start Last Admin Trade Name Freq PRN Reason Stop Dose Admin Acetaminophen 650 mg 06/23/17 13:15 Tylenol - PO Q4H PRN FEVER OR PAIN Al Hydroxide/Mg Hydroxide 30 ml 06/23/17 13:15 Mylanta Oral Suspension - PO Q6H PRN DYSPEPSIA Colloidal Oatmeal 1 applic 06/23/17 13:17 07/13/17 13:59 Aveeno Soap - TP 1 bar DAILY PRN Administration HYGEINE Diphenhydramine HCl 100 mg 07/01/17 22:00 07/14/17 21:05 Benadryl - PO 100 mg HS LINNETTE Administration Eucalyptus/Menthol/Phenol/Sorbitol 1 each 06/23/17 13:15 Cepastat Lozenge - MM Q4H PRN SORE THROAT Guaifenesin 10 ml 06/23/17 13:15 Robitussin Dm - PO Q6H PRN COUGH Hydroxyzine Pamoate 50 mg 06/23/17 13:15 Vistaril - PO Q4H PRN AGITATION Ibuprofen 600 mg 06/24/17 15:10 Motrin - PO Q6H PRN PAIN Lidocaine HCl 20 ml 06/24/17 15:10 Xylocaine 2% Viscous Oral - MM Q4HPO PRN ORAL PAIN/MOUTH SORES Loperamide HCl 4 mg 06/23/17 13:15 07/12/17 16:47 Imodium - PO 4 mg Q6H PRN Administration DIARRHEA Magnesium Hydroxide 30 ml 06/23/17 13:15 Milk Of Magnesia - PO DAILY PRN CONSTIPATION Nicotine 21 mg 06/24/17 10:00 07/14/17 09:09 Nicoderm Patch - TD Not Given DAILY LINNETTE Multivit/Folic Acid/Iron 1 tab 06/24/17 10:00 07/14/17 09:09 Vitamins (Sjr) - PO 1 tab DAILY LINNETTE Administration Pseudoephedrine/Triprolidine 1 combo 06/23/17 13:15 Actifed - PO TID PRN NASAL CONGESTION Sertraline HCl 50 mg 06/24/17 10:00 07/14/17 09:09 Zoloft - PO 50 mg DAILY LINNETTE Administration Thiamine HCl 100 mg 06/23/17 22:00 07/14/17 21:05 Vitamin B1 - PO 100 mg HS LINNETTE Administration Medication(s) Change(s): Zoloft 50mg poqd. Benadryl 100mg po qhs Mental Status Exam - Mental Status Exam Alert and Oriented to: Time, Place, Person Cognitive Function: Fair Patient Appearance: Well Groomed Mood: Apprehensive Affect: Mood Congruent Patient Behavior: Cooperative Speech Pattern: Appropriate Voice Loudness: Normal Thought Process: Goal Oriented Thought Disorder: Being Controlled Hallucinations: Denies Suicidal Ideation: Denies Homicidal Ideation: Denies Insight/Judgement: Fair Sleep: Difficulty falling asleep Appetite: Weight loss Muscle strength/Tone: Normal Gait/Station: Normal Additional Comments: Zoloft 50mg poqd. Benadryl 100mg po qhs Psychiatric Treatment Plan - Problem List (1) Alcohol dependence with uncomplicated withdrawal Current Visit: Yes (2) Cocaine dependence Current Visit: Yes (3) Drug-induced mood disorder Current Visit: Yes (4) Nicotine dependence Current Visit: Yes Initial treatment plan: Zoloft 50mg poqd. Benadryl 100mg po qhs
[2017-07-15] MEDS: NICOTINE 21 MG/24 HOURS TOPICAL PATCH TD SCH (09:08)
[2017-07-15] MEDS: SERTRALINE HCL 50 MG TABLET (FP) PO SCH (09:08)
[2017-07-15] MEDS: PRENATAL VITAMINS W/ FOLIC ACID TABLET (FP) PO SCH (09:08)
== END 2017-07-15 10:54 | disposition home or self-care (01) | DRG 772 ==
LOC: YASAS 11:28 → Y3E 11:29
PROVIDERS: ADMIT Psychiatry & Neurology Psychiatry; ATTEND Psychiatry & Neurology Psychiatry
PROC: HZ42ZZZ Group Counseling for Substance Abuse Treatment, Cognitive-Behavioral (ICD-10-PCS; principal; 2017-06-23)
DX: F10.20 Alcohol dependence, uncomplicated (principal); F14.20 Cocaine dependence, uncomplicated; F17.210 Nicotine dependence, cigarettes, uncomplicated; F19.24 Other psychoactive substance dependence with psychoactive substance-induced mood disorder; N76.0 Acute vaginitis; B96.89 Other specified bacterial agents as the cause of diseases classified elsewhere; Z59.0 Homelessness